=== PATIENT | male | born 1980 | race Caucasian/White ===

== ENCOUNTER 2021-08-08 10:51 | Emergency (ER) | payer OTHER ==
[2021-08-08 10:58] VITALS: RESP 18
--- NOTE | 2021-08-08 11:20 | ED ---
General Adult HPI - General Chief complaint: Upper Respiratory Infection Stated complaint: covid+/antibodies Time Seen by Provider: 08/08/21 11:08 Source: patient, RN notes reviewed Mode of arrival: ambulatory Limitations: no limitations - History of Present Illness Initial comments: 40-year-old male presents to the emergency Department with complaints of headache, fatigue, and congested cough. Patient states he was exposed to Covid. States symptoms began approximately 2 days ago and is requesting a monoclonal antibody infusion. Patient denies fever, shortness of breath, difficulty breathing, chest pain, abdominal pain, nausea, and vomiting. - Related Data Home Medications Medication Instructions Recorded Confirmed No Known Home Medications 08/08/21 08/08/21 Allergies Allergy/AdvReac Type Severity Reaction Status Date / Time No Known Allergies Allergy Verified 08/08/21 11:52 Review of Systems ROS Statement: Those systems with pertinent positive or pertinent negative responses have been documented in the HPI. ROS Other: All systems not noted in ROS Statement are negative. Past Medical History Past Medical History: No Reported History History of Any Multi-Drug Resistant Organisms: None Reported Past Surgical History: No Surgical Hx Reported Past Psychological History: No Psychological Hx Reported Smoking Status: Never smoker Past Alcohol Use History: Occasional Past Drug Use History: None Reported General Exam Limitations: no limitations General appearance: alert, in no apparent distress ENT exam: Present: normal exam, normal oropharynx, mucous membranes moist Respiratory exam: Present: normal lung sounds bilaterally. Absent: respiratory distress, wheezes, rales, rhonchi, stridor Cardiovascular Exam: Present: regular rate, normal rhythm, normal heart sounds. Absent: systolic murmur, diastolic murmur, rubs, gallop, clicks GI/Abdominal exam: Present: soft, normal bowel sounds. Absent: distended, tenderness, guarding, rebound, rigid Neurological exam: Present: alert, oriented X3, CN II-XII intact Psychiatric exam: Present: normal affect, normal mood Skin exam: Present: warm, dry, intact, normal color. Absent: rash Course Vital Signs 08/08/21 08/08/21 10:53 14:06 Temperature 98.9 F 98.7 F Pulse Rate 92 88 Respiratory 18 18 Rate Blood Pressure 153/89 128/71 O2 Sat by Pulse 98 98 Oximetry Medical Decision Making - Medical Decision Making 40-year-old male presents to the emergency department requesting monoclonal antibody infusion. Patient does provide documentation of the positive covid test. Meets criteria based on BMI. Upon exam, patient is well-appearing and experiencing no respiratory distress at this time. He is afebrile, not tachycardic, nor tachypneic. Risks and benefits of infusion reviewed with patient, he verbalizes understanding and is agreeable. Patient tolerated infusion without any adverse event. Patient will be discharged home to follow up with his primary care provider as needed. REturn parameters were discussed in detail. Patient verbalizes understanding and agrees with this plan. This patient's care was discussed with my attending Dr. Castelan. Disposition Clinical Impression: COVID-19 Disposition: HOME SELF-CARE Condition: Stable Instructions (If sedation given, give patient instructions): Coronavirus Disease 2019 (COVID-19) Additional Instructions: Rest. Increase fluids. May take Tylenol or Motrin as needed for discomfort or fever. Quarantined for 10 days from symptom onset. Follow-up with her primary care provider for a recheck as needed. 10 to the emergency department with any new, worsening, or concerning symptoms. Is patient prescribed a controlled substance at d/c from ED?: No Referrals: None,Stated [Primary Care Provider] - 1-2 days Time of Disposition: 13:50
[2021-08-08] MEDS ORDERED: SODIUM CHLORIDE 0.9% 50 ML IVPB ONE (11:45)
[2021-08-08] MEDS ORDERED: CASIRIVIMAB (REGN10933) (EUA) 600 MG, IMDEVIMAB (REGN10987) (EUA) 600 MG in SODIUM CHLO... IVPB ONE (11:45)
[2021-08-08 14:07] VITALS: BP 128/71; PULSE 88; TEMP 98.7
== END 2021-08-08 14:07 | disposition home or self-care (01) ==
LOC: EC 10:51
DX: U07.1 COVID-19 (principal)
CPT/HCPCS: 99283; Q0243